=== PATIENT | female | born 2000 | race American Indian/Alaskan Native ===

== ENCOUNTER 2018-09-26 12:11 | Emergency (ER) | payer SELFPAY ==
[2018-09-26 12:22] VITALS: BP 129/80
--- NOTE | 2018-09-26 12:24 | Emergency Department Report ---
Chief Complaint: Headache Stated Complaint: HEADACHE Time Seen by Provider: 09/26/18 12:20 - HPI History of Present Illness: This is a 18 y.o. female that presents with increasing headache x 3 weeks. LMP 09/07/2018. cc: headache and nausea - Exam Vital Signs: Vital Signs 09/26/18 12:20 Temperature 98.2 F Pulse Rate 91 H Respiratory 18 Rate Blood Pressure 129/80 O2 Sat by Pulse 100 Oximetry MSE screening note: Focused history and physical exam performed. Due to findings the following was ordered: Urine hCG & CT of head ED Disposition for MSE Condition: Stable
[2018-09-26 14:29] LABS: HCG Qualitative,Urine Negative (Negative)
[2018-09-26] MEDS ORDERED: FIORICET PO ONE (15:26)
--- NOTE | 2018-09-26 15:45 | Emergency Department Report ---
ED Headache HPI - General Chief Complaint: Headache Stated Complaint: HEADACHE Time Seen by Provider: 09/26/18 12:20 - History of Present Illness Initial Comments: This is a 18-year-old female presents to the ED complaining of nonradiating, localized the temporal region aching type headache intermittently for the past 3 weeks. She denies blurry vision, trauma or fall, nausea vomiting Timing/Duration: other (3 weeks) Quality: moderate Head Injury Location: temporal Recent Head Trauma: no recent headache/trauma Modifying Factors: worse with: movement Associated Symptoms: denies: confusion, fatigue, facial pain, loss of consciousness, nausea/vomiting, nasal congestion Allergies/Adverse Reactions: Allergies Penicillins Allergy (Verified 09/26/18 12:11) Itching Home Medications: Ambulatory Orders Acetaminophen/Codeine [Acetaminophen-Codeine #3 TAB] 1 tab PO Q6H PRN #10 tab 08/11/14 Docusate Sodium [Colace] 100 mg PO BID PRN #20 capsule 08/11/14 Ibuprofen [Motrin] 800 mg PO Q8H PRN #20 tablet 08/11/14 Ondansetron [Zofran Odt] 4 mg PO Q8HR PRN #5 tab.rapdis 08/11/14 HYDROcodone/APAP 5-325 [Holden 5/325] 1 each PO Q6HR PRN #12 tablet 11/22/14 Promethazine [Phenergan] 25 mg PO Q6H PRN #12 tablet 11/22/14 Butalb/Acetamin/Caff 50-325-40 [Fioricet] 1 tab PO Q8HR PRN #30 tablet 09/26/18 Ondansetron (Nf) [Zofran TAB] 8 mg PO Q8HR #20 tablet 09/26/18 ED Review of Systems ROS: Stated complaint: HEADACHE Other details as noted in HPI Comment: All other systems reviewed and negative ED Past Medical Hx - Past Medical History Previous Medical History?: Yes - Surgical History Past Surgical History?: No Additional Surgical History: tonsillectomy - Social History Smoking Status: Never Smoker Substance Use Type: None - Medications Home Medications: Home Medications Medication Instructions Recorded Confirmed Last Taken Type Acetaminophen/Codeine 1 tab PO Q6H PRN #10 tab 08/11/14 Unknown Rx [Acetaminophen-Codeine #3 TAB] Docusate Sodium [Colace] 100 mg PO BID PRN #20 capsule 08/11/14 Unknown Rx Ibuprofen [Motrin] 800 mg PO Q8H PRN #20 tablet 08/11/14 Unknown Rx Ondansetron [Zofran Odt] 4 mg PO Q8HR PRN #5 tab.rapdis 08/11/14 Unknown Rx HYDROcodone/APAP 5-325 [Holden 1 each PO Q6HR PRN #12 tablet 11/22/14 Unknown Rx 5/325] Promethazine [Phenergan] 25 mg PO Q6H PRN #12 tablet 11/22/14 Unknown Rx Butalb/Acetamin/Caff 50-325-40 1 tab PO Q8HR PRN #30 tablet 09/26/18 Unknown Rx [Fioricet] Ondansetron (Nf) [Zofran TAB] 8 mg PO Q8HR #20 tablet 09/26/18 Unknown Rx ED Physical Exam - General Limitations: No Limitations General appearance: alert, in no apparent distress - Head Head exam: Present: atraumatic, normocephalic - Eye Eye exam: Present: normal appearance, PERRL Pupils: Present: normal accommodation - ENT ENT exam: Present: mucous membranes moist - Neck Neck exam: Present: normal inspection - Respiratory Respiratory exam: Present: normal lung sounds bilaterally. Absent: respiratory distress - Cardiovascular Cardiovascular Exam: Present: regular rate, normal rhythm. Absent: systolic murmur, diastolic murmur, rubs, gallop - GI/Abdominal GI/Abdominal exam: Present: soft, normal bowel sounds - Extremities Exam Extremities exam: Present: normal inspection - Back Exam Back exam: Present: normal inspection - Neurological Exam Neurological exam: Present: alert, oriented X3 - Expanded Neurological Exam Expanded Patient oriented to: Present: person, place, time Speech: Present: fluid speech Cranial nerves: Facial Sensation: Normal Cerebellar function: Finger to Nose: Normal Sensory exam: Upper Extremity Light Touch: Normal, Lower Extremity Light Touch: Normal Motor strength exam: RUE: 5, LUE: 5, RLE: 5, LLE: 5 Best Eye Response (Oleg): (4) open spontaneously Best Motor Response ([place]): (6) obeys commands Best Verbal Response (Oleg): (5) oriented Oleg Total: 15 - Psychiatric Psychiatric exam: Present: normal affect, normal mood - Skin Skin exam: Present: warm, dry, intact, normal color. Absent: rash ED Course Vital Signs 09/26/18 12:20 Temperature 98.2 F Pulse Rate 91 H Respiratory 18 Rate Blood Pressure 129/80 O2 Sat by Pulse 100 Oximetry ED Medical Decision Making - Radiology Data Radiology results: report reviewed, image reviewed PROCEDURE: CT HEAD/BRAIN WO CON TECHNIQUE: Axial helical imaging from the skull base to the vertex. HISTORY: occipital pressure COMPARISONS: None FINDINGS: There is no evidence of an acute intracranial process, intracranial hemorrhage or mass effect. The ventricles are normal size. The visualized portions of the orbits, paranasal and mastoid sinuses are unremarkable. The bony structures are unremarkable. There appears to be mild to moderate prominence of the adenoids. IMPRESSION: 1. No evidence of an acute intracranial process, intracranial hemorrhage or mass effect. If there is a clinical suspicion of an acute intracranial process, MRI brain may be helpful. 2. Appearance of mild to moderate prominence of the adenoids. This document is electronically signed by Kelin Gayle MD., September 26 2018 06:23:45 PM ET Transcribed By: ED Dictated By: KELIN GAYLE MD Electronically Authenticated By: KELIN GAYLE MD Signed Date/Time: 09/26/18 1825 - Medical Decision Making 18-year-old female presents with migraine/tension headache Patient received Fioricet ED Patient anuric deficit. Patient is neurologically stable CT scan shows no acute finding Discussed findings with the patient. Discussed the patient's symptoms persisted follow up with neurologist as referred. Discussed with the patient she has any new onset or worsening symptoms to return to ED immediately. Neurologist referral scan Critical care attestation.: If time is entered above; I have spent that time in minutes in the direct care of this critically ill patient, excluding procedure time. ED Disposition Clinical Impression: Migraine headache without aura Disposition: DC-01 TO HOME OR SELFCARE Is pt being admited?: No Does the pt Need Aspirin: No Condition: Stable Instructions: Migraine Headache (ED), Tension Headache (ED), Acute Headache (ED) Additional Instructions: Make sure to follow up with the primary care physician as discussed. Take all your medications as you've been prescribed. If you have any worsening symptoms or develop new symptoms please return to ED immediately. Prescriptions: Butalb/Acetamin/Caff 50-325-40 [Fioricet] 1 tab PO Q8HR PRN #30 tablet PRN Reason: Headache Ondansetron (Nf) [Zofran TAB] 8 mg PO Q8HR #20 tablet Referrals: GIOVANNA UPTON MD [Primary Care Provider] - 3-5 Days DIOGENES MOSCOSO MD [Staff Physician] - 3-5 Days Forms: Work/School Release Form(ED) Time of Disposition: 18:30
--- NOTE | 2018-09-26 18:25 | Cat Scan Report ---
PROCEDURE: CT HEAD/BRAIN WO CON TECHNIQUE: Axial helical imaging from the skull base to the vertex. HISTORY: occipital pressure COMPARISONS: None FINDINGS: There is no evidence of an acute intracranial process, intracranial hemorrhage or mass effect. The ventricles are normal size. The visualized portions of the orbits, paranasal and mastoid sinuses are unremarkable. The bony structures are unremarkable. There appears to be mild to moderate prominence of the adenoids. IMPRESSION: 1. No evidence of an acute intracranial process, intracranial hemorrhage or mass effect. If there is a clinical suspicion of an acute intracranial process, MRI brain may be helpful. 2. Appearance of mild to moderate prominence of the adenoids. This document is electronically signed by Kelin Gayle MD., September 26 2018 06:23:45 PM ET
== END 2018-09-26 20:08 | disposition home or self-care (01) ==
LOC: ED 12:11
DX: G43.001 Migraine without aura, not intractable, with status migrainosus (principal); Z88.0 Allergy status to penicillin; Z90.49 Acquired absence of other specified parts of digestive tract
CPT/HCPCS: 70450; 81025; 99284

== ENCOUNTER 2019-03-17 21:51 | Emergency (ER) | payer SELFPAY ==
[2019-03-17 23:17] VITALS: BP 138/77
[2019-03-17] MEDS ORDERED: TYLENOL PO ONE (23:20)
[2019-03-17] MEDS ORDERED: TYLENOL ONE (23:24)
--- NOTE | 2019-03-18 00:33 | XRay Report ---
CHEST 2 VIEWS INDICATION / CLINICAL INFORMATION: chest pain. COMPARISON: None available. FINDINGS: SUPPORT DEVICES: None. HEART / MEDIASTINUM: No significant abnormality. LUNGS / PLEURA: No significant pulmonary or pleural abnormality. .No pneumothorax. ADDITIONAL FINDINGS: There is mild scoliotic curvature in the thoracolumbar spine. IMPRESSION: 1. No acute findings. Signer Name: Koffi Lam MD Signed: 03/18/2019 12:29 AM Workstation Name: [id number]
== END 2019-03-18 01:35 | disposition left against medical advice (07) ==
LOC: ED 21:51
DX: R07.89 Other chest pain (principal); Z53.21 Procedure and treatment not carried out due to patient leaving prior to being seen by health care provider
CPT/HCPCS: 71046; 93005; 93010

== ENCOUNTER 2019-08-22 11:54 | Emergency (ER) | payer SELFPAY ==
--- NOTE | 2019-08-22 12:49 | Emergency Department Report ---
{null, Blank Doc - Documentation Documentation: 19-year-old female that presents with chest pain. Denies any SOB. This initial assessment/diagnostic orders/clinical plan/treatment(s) is/are subject to change based on patient's health status, clinical progression and re- assessment by fellow clinical providers in the ED. Further treatment and workup at subsequent clinical providers discretion. Patient/guardians urged not to elope from the ED as their condition may be serious if not clinically assessed and managed. Initial orders include: 1- Patient sent to [facility] for further evaluation and treatment 2- EKG 3- CXR }
--- NOTE | 2019-08-22 13:18 | XRay Report ---
{null, CHEST PA AND LATERAL VIEWS INDICATION: cp. COMPARISON: 03/17/2019. FINDINGS: Support devices: None. Heart: Within normal limits. Lungs/Pleura: No acute pulmonary or pleural findings. IMPRESSION: 1. No acute findings. Signer Name: Freddy Gee MD Signed: 08/22/2019 1:14 PM Workstation Name: [id number] }
[2019-08-22 17:52] LABS: Basophils # (Auto) 0.1 K/mm3 (0.0-0.1); Basophils % (Auto) 0.8 % (0.0-1.8); Eosinophils # (Auto) 0.1 K/mm3 (0.0-0.4); Eosinophils % (Auto) 1.1 % (0.0-4.3); Hematocrit 38.9 % (30.3-42.9); Lymphocytes # (Auto) 3.8 K/mm3 (1.2-5.4); Mean Corpuscular HGB Conc 33 % (30-34); Mean Corpuscular Volume 86 fl (79-97); Monocytes # (Auto) 0.6 K/mm3 (0.0-0.8); Platelet Count 314 K/mm3 (140-440); Red Blood Count 4.54 M/mm3 (3.65-5.03); Red Cell Distribution Width 13.7 % (13.2-15.2)
--- NOTE | 2019-08-22 18:10 | Emergency Department Report ---
{null, Chief Complaint: Chest Pain Stated Complaint: CHEST PAIN Time Seen by Provider: 08/22/19 12:48 - HPI History of Present Illness: 19-year-old -[place] female presents to the emergency room for left side chest pain with shortness of breath onset this morning. Patient denies any injury no radiation of pain no nausea no vomiting no fever no chills. Patient states when she moves she has worsening of chest pain. Patient denies any injuries. Patient has no past medical history. Has not traveled. No history of cancer. Patient currently not on control. - Exam Vital Signs: Vital signs blood pressure 135/83 pulse is 82 respirations 20 temp 97.8 100% oxygen on room air. Physical Exam: GENERAL APPEARANCE: Well developed, well nourished, in no acute distress. SKIN: Inspection of the skin reveals no rashes, HEENT: The sclerae were anicteric and conjunctivae were pink and moist. Extraoc ular movements were intact and pupils were equal, round, and reactive to light soft palate, tongue and posterior pharynx were normal. NECK: Supple and symmetric. T CHEST: Normal AP diameter and normal contour without any kyphoscoliosis. LUNGS: Auscultation of the lungs revealed normal breath sounds without any other adventitious sounds or rubs. Left chest tenderness with palpation CARDIOVASCULAR: There was a regular rate and rhythm without any murmurs, gallops, rubs. The carotid pulses were normal and 2+ bilaterally without bruits. Peripheral pulses were 2+ and symmetric. EXTREMITIES: No cyanosis, clubbing or edema. NEUROLOGIC: Alert and oriented x 3. Normal affect. G MSE screening note: Focused history and physical exam performed. Due to findings the following was ordered: 19-year-old -[place] female presents to the emergency room for left side chest pain with shortness of breath onset this morning. Patient denies any injury no radiation of pain no nausea no vomiting no fever no chills. Patient states when she moves she has worsening of chest pain. Patient denies any injuries. Patient has no past medical history. Has not traveled. No history of cancer. Patient currently not on control. EKG negative, chest x-ray negative, lab work are stable. On exam patient had left chest tenderness with palpation. Discussed the patient she can take ibuprofen every 6-8 hours and to follow-up with her primary care provider. Patient verbalized understanding ED Medical Decision Making - Lab Data Result diagrams: 08/22/19 17:28 08/22/19 17:28 Laboratory Tests 08/22/19 08/22/19 17:28 17:28 WBC 9.4 RBC 4.54 Hgb 13.0 Hct 38.9 MCV 86 MCH 29 MCHC 33 RDW 13.7 Plt Count 314 Lymph % (Auto) 40.0 H Tate % (Auto) 6.0 Eos % (Auto) 1.1 Baso % (Auto) 0.8 Lymph # 3.8 Tate # 0.6 Eos # 0.1 Baso # 0.1 Seg Neutrophils % 52.1 Seg Neutrophils # 4.9 HCG, Qual Negative - Radiology Data Radiology results: report reviewed Patient: ANGELIKA PORTILLO MR#: [id number] : 2000 Acct:[id number] Age/Sex: 19 / F ADM Date: 08/22/19 Loc: ED Attending Dr: Ordering Physician: YADIEL SESAY NP Date of Service: 08/22/19 Procedure(s): XR chest routine 2V Accession Number(s): [id number] cc: YADIEL SESAY NP Fluoro Time In Minutes: CHEST PA AND LATERAL VIEWS INDICATION: cp. COMPARISON: 03/17/2019. FINDINGS: Support devices: None. Heart: Within normal limits. Lungs/Pleura: No acute pulmonary or pleural findings. IMPRESSION: 1. No acute findings. Signer Name: Freddy Gee MD Signed: 08/22/2019 1:14 PM Workstation Name: [id number] Transcribed By: Dictated By: Freddy Gee MD Electronically Authenticated By: Freddy Gee MD Signed Date/Time: 08/22/19 1314 ED Disposition for MSE Clinical Impression: Chest wall tenderness Disposition: Z-07 MED SCREENING EXAM-LEFT Is pt being admited?: No Does the pt Need Aspirin: No Condition: Stable Instructions: Chest Pain (ED) Additional Instructions: EKG negative, chest x-ray negative, lab work are stable. Discussed the patient she can take ibuprofen every 6-8 hours and to follow-up with her primary care provider. Patient verbalized understanding. Referrals: GANESH JIMENES MD [Primary Care Provider] - 3-5 Days MIRZA VARMA MD [Staff Physician] - 3-5 Days Forms: Work/School Release Form(ED) }
[2019-08-22 18:22] LABS: Alanine Aminotransferase 19 units/L (7-56); Albumin 4.5 g/dL (3.9-5); BUN/Creatinine Ratio 14; Blood Urea Nitrogen 10 mg/dL (7-17); Calcium 9.7 mg/dL (8.4-10.2); Hemolysis Index 16
== END 2019-08-22 18:47 | disposition left against medical advice (07) ==
LOC: ED 11:54
DX: R07.89 Other chest pain (principal)
CPT/HCPCS: 36415; 71046; 80053; 84484; 84703; 85025; 93005; 93010